=== PATIENT | male | born 1970 | race Caucasian/White ===

== ENCOUNTER 2023-06-02 11:08 | Emergency (ER) | payer OTHER, SELFPAY ==
[2023-06-02 11:25] VITALS: BP 129/89; PULSE 83; RESP 16; TEMP 36; O2SAT 99
--- NOTE | 2023-06-02 11:25 | ED.URI ---
HPI - URI/Sore Throat General Chief Complaint: Upper Respiratory Infection Stated Complaint: FEVER/HEAD CONGESTION/CHILLS Source: patient, RN notes reviewed and old records reviewed Mode of arrival: ambulatory Limitations: no limitations History of Present Illness HPI Narrative: 53 year old male presents to [facility] care with complaints of sinus congestion and drainage, stuffy nose, cough, and also sore throat since Tuesday with intermittent fevers with highest 101F. Patient reports that fever does break with Ibuprofen but then comes back after medication has worn off. Patient reports that he has had headaches, some chills and sweats noted with the fevers but no myalgia reported. Patient has taken Sudafed ad Ibuprofen for his symptoms. MD elicited complaint: fever, cough, sore throat, rhinorrhea, nasal congestion and other (headache) Onset (ago): day(s) (4-5 days) Consistency: other (continues) Severity: moderate Able to tolerate fluids by mouth: Yes Exacerbating factors: swallowing Treatments prior to arrival: ibuprofen and other (Sudafed) Related Data Allergies Allergy/AdvReac Type Severity Reaction Status Date / Time amoxicillin Allergy Redness of Verified 06/02/23 11:51 Skin Review of Systems Review of Systems: CONSTITUTIONAL: Reports malaise, chills, sweats, or fever. EYES: Denies visual changes, redness, or discharge. ENT: Reports rhinorrhea, congestion, sinus pain, no otalgia and positive for sore throat. CARDIOVASCULAR: Denies chest pain, palpitations, or edema. RESPIRATORY: Reports cough.? Denies dyspnea. GASTROINTESTINAL: Denies abdominal pain, nausea, vomiting, diarrhea SKIN: Denies rash or itching. MUSCULOSKELETAL: Denies myalgia. NEUROLOGIC: Reports headache. All systems reviewed & are unremarkable except as noted in HPI and below [facility] Surgical History Surgical History (Updated 06/02/23 @ 11:41 by Liliane Lanier NP) H/O vasectomy Social History Social History (Updated 06/02/23 @ 11:41 by Liliane Lanier NP) Smoking status: Never smoker Alcohol intake: current Alcohol use details: social Substance use type: does not use Living arrangements: with family Gender identity (if verbalized by the patient): Male Comments At time of signature, agree with nursing past medical, surgical, social and family history. There is no relevant family history pertinent to the presenting complaint Exam Narrative: GENERAL: Ill-appearing, well-nourished, and in no acute distress. HEAD: Normocephalic EYES: PERRLA, conjunctivae clear ENT: Nares clear, turbinates edematous and erythematous, clear discharge. Mucous membranes moist. TM pearly lindquist with dull light reflex bilaterally; no tragal tenderness. Oropharynx erythematous without lesions. Tonsils not enlarged and throat without exudate, no drooling, some hoarseness, no trismus, uvula midline. post nasal drainage noted NECK: Supple. No lymphadenopathy CHEST: Clear to auscultation, breath sounds equal. No wheezing, rhonchi, rales, or stridor. No respiratory distress, speaks in full sentences.cough SAO2 99% on room air HEART: Regular rate and rhythm. No murmur heard. SKIN: Warm, dry, no rash. NEURO: Alert and oriented x3. PSYCH: Normal mood and affect Course Course Emergency Course: Patient is aware of diagnosis, understands and agrees to treatment plan.? Anticipatory guidance given.? Patient agrees to follow-up as directed and is aware of reasons to seek care at the emergency department. Portions of this record may have been created with voice recognition software Level of Care: Express Care Visit Vital Signs Vital signs: Vital Signs Temperature 36.0 C L 06/02/23 11:25 Pulse Rate 83 06/02/23 11:25 Respiratory Rate 16 06/02/23 11:25 Blood Pressure 129/89 06/02/23 11:25 Pulse Oximetry 99 06/02/23 11:25 Oxygen Delivery Room Air 06/02/23 11:25 Temperature 36.0 C L 06/02/23 11:25 P
== END 2023-06-02 11:55 | disposition home or self-care (01) ==
PROVIDERS: Emergency Provider Registered Nurse
DX: J10.1 Influenza due to other identified influenza virus with other respiratory manifestations (principal); Z20.822 Contact with and (suspected) exposure to COVID-19; Z98.52 Vasectomy status
CPT/HCPCS: 87081; 87426; 87804; 87880; 99213; G0463